=== PATIENT | female | born 1970 | race Caucasian/White ===

== ENCOUNTER 2016-10-09 19:31 | Outpatient (CLI) | payer MEDICAID | END 2016-10-09 19:32 | disposition short-term general hospital (02) | LOC: EMS 19:31 | PROVIDERS: ATTEND Surgery | DX: R20.0 Anesthesia of skin (principal); R42 Dizziness and giddiness | CPT/HCPCS: A0425; A0427 ==

== ENCOUNTER 2023-12-06 06:45 | Outpatient (CLI) | payer MEDICAID | END 2023-12-06 23:30 | disposition short-term general hospital (02) | LOC: EMS 06:45 | DX: I10 Essential (primary) hypertension (principal); R51.9 Headache, unspecified; R11.0 Nausea | CPT/HCPCS: A0425; A0427; A0999 ==